=== PATIENT | male | born 1970 | race Caucasian/White ===

== ENCOUNTER 2023-07-19 20:41 | Emergency (ER) | payer MEDICAID, SELFPAY ==
[2023-07-19 20:57] VITALS: BP 186/108; PULSE 103; RESP 18; TEMP 37.2; O2SAT 99; BMI 55.8
[2023-07-20] VITALS: BP 177/79; PULSE 91; RESP 20; TEMP 36.6; O2SAT 92
--- NOTE | 2023-07-20 01:32 | ED_ITS ---
HPI - General Adult General Chief complaint: Skin/Abscess/Foreign Body Stated complaint: abscess back of head Time Seen by Provider: 07/20/23 00:54 Source: patient, RN notes reviewed and old records reviewed Mode of arrival: ambulatory Limitations: no limitations History of Present Illness HPI narrative: 53-year-old male presents for evaluation of an abscess to the back of his neck. Patient reports that for the last 2 weeks he had a small pimple to the back of his neck. Over the last 2 days the area has become significantly more painful, swollen He denies any fevers or chills He has no other complaints or concerns at this time Related Data Previous Rx's ?Medication ?Instructions ?Recorded cephalexin 500 mg tablet 500 mg PO QID #28 tabs 07/20/23 Allergies Allergy/AdvReac Type Severity Reaction Status Date / Time No Known Allergies Allergy Verified 07/19/23 21:01 Review of Systems Constitutional: Constitutional: Denies body ache(s), Denies chills and Denies fever(s) ENT: Denies sore throat Cardiovascular: Cardiovascular: Denies chest pain and Denies dyspnea Respiratory: Respiratory: Denies cough and Denies dyspnea Gastrointestinal: Gastrointestinal: Denies abdominal pain Integumentary/Breasts: Skin/Breast: Reports erythema, Reports skin pain and Reports skin swelling PMFSH Social History Social History Advance Directives: No Advance Directives Information Provided: Yes Physical Exam ED Vital Signs: Vital Signs - 24 hr 07/19/23 20:57 07/20/23 00:00 Temperature 98.9 F 97.8 F Pulse Rate 103 H 91 Respiratory Rate 18 20 Blood Pressure 186/108 H 177/79 H Pulse Oximetry 99 92 Oxygen Delivery Method Room Air Room Air BMI result Body Mass Index 55.8 Const General: healthy appearing, comfortable, no acute distress, alert and awake Nutritional Appearance: well nourished Orientation/consciousness: patient oriented x3 HENMT Head: Yes normocephalic and Yes atraumatic Eyes Eyelids: Yes eyelids normal Conjunctivae: conjunctivae normal Sclerae: sclerae normal Corneas: corneas normal Pupils: Equal, round and reactive pupils present EOM: EOMs intact bilaterally Neck Other: Posterior neck has a 2 x 2 cm area of fluctuance with surrounding erythema and induration. No open wounds or drainage. This area is tender to palpation Neck: Yes full ROM, No positive Brudzinski's sign and No positive Kernig's sign Resp Effort & Inspection: normal respiratory effort, able to speak in complete sentences and not labored Skin General skin exam: elasticity normal Neuro General: patient oriented x3 Cranial nerves: Yes Equal, round and reactive pupils present and Yes Bilaterally intact EOM present Cognition (Neuro): normal cognition Procedures Abscess I/D Site: neck (Right posterior neck) Side (if applicable): right Local Anesthetic: lidocaine 1% and with epi Amount of anesthesia used (mL): 2 Technique: incised with blade Amount of fluid expressed (mL): 5 Sent for culture/gram staining?: No Irrigation: Yes Packing used?: none Medical Decision Making Medical Decision Making MDM Narrative: Patient appears to have a simple abscess of the posterior neck area. See procedure note for incision and drainage. He will be discharged on cephalexin. Differential Diagnosis Differential Diagnoses: The differential diagnosis associated with the presentation includes Abscess Cellulitis Sebaceous cyst Boil Discharge Plan Discharge Clinical Impression: Abscess Patient Disposition: Home, Self-Care Instructions: Abscess (ED), Incision and Drainage (ED) Additional Instructions: You had an abscess incised and drained today. Continue warm compresses every 4 hours for 10-15 minutes Take cephalexin 4 times daily for 1 week Return for new or worsening symptoms Prescriptions: New cephalexin 500 mg tablet 500 mg PO QID Qty: 28 0RF Print Language: Congolese
[2023-07-20] MEDS: cephALEXin 500 MG CAPSULE PO (02:08)
[2023-07-20 02:12] VITALS: BP 170/82; PULSE 89; RESP 20; TEMP 36.7; O2SAT 94
== END 2023-07-20 02:14 | disposition home or self-care (01) ==
PROVIDERS: Emergency Provider Emergency Medicine
DX: L02.11 Cutaneous abscess of neck (principal)
CPT/HCPCS: 10060; 99282; 99283